=== PATIENT | female | born 2000 | race Caucasian/White ===

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

== ENCOUNTER → 2021-04-08 | Outpatient (CLI) | payer BC | END | disposition home or self-care (01) | LOC: COVID19 16:07 | PROVIDERS: ATTEND Internal Medicine | DX: Z11.52 Encounter for screening for COVID-19 (principal) ==

== ENCOUNTER → 2021-10-13 | Outpatient (CLI) | payer BC ==
[2021-10-13 12:04] LABS: HEMATOCRIT 40.2 % (37.0-47.0); MEAN CORPUSCULAR HGB 28.1 pg (27.0-31.0); MEAN CORPUSCULAR HGB CONC 33.1 g/dl (33.0-37.0); MEAN PLATELET VOLUME 11.7 fl (9.6-12.3); RED BLOOD COUNT 4.73 10*6/uL (4.10-5.10); RED CELL DISTRI WIDTH 12.7 % (0-14.5); WHITE BLOOD COUNT 8.8 10*3/uL (4.8-10.8)
[2021-10-13 12:21] LABS: ALKALINE PHOSPHATASE 61 U/L (45-117); BUN 10 mg/dl (7-24); CHLORIDE 106 mmol/L (98-107); CHOLESTEROL 177 mg/dL (<200); CREATININE 0.51 mg/dL (0.55-1.02); LDL CHOLESTEROL 109 mg/dL (9-159); POTASSIUM 3.9 mmol/L (3.5-5.1); SGOT/AST 11 IU/L (3-35); SGPT/ALT 25 U/L (12-78); SODIUM 139 mmol/L (136-145); TOTAL PROTEIN 8.3 gm/dL (6.4-8.2); TRIGLYCERIDES 91 mg/dl (<150)
== END | disposition home or self-care (01) ==
LOC: LAB 11:16
PROVIDERS: ATTEND Family Medicine
DX: R55 Syncope and collapse (principal); R39.198 Other difficulties with micturition; R51.9 Headache, unspecified; R41.0 Disorientation, unspecified

== ENCOUNTER 2021-10-14 18:40 | Emergency (ER) | payer BC | END 2021-10-14 21:20 | disposition home or self-care (01) | LOC: ED 18:40 | DX: S29.012A Strain of muscle and tendon of back wall of thorax, initial encounter (principal); M25.561 Pain in right knee; M25.562 Pain in left knee; Z79.899 Other long term (current) drug therapy; W18.39XA Other fall on same level, initial encounter; Y93.89 Activity, other specified; Y92.89 Other specified places as the place of occurrence of the external cause; Y99.8 Other external cause status ==

== ENCOUNTER 2025-01-14 12:58 | Emergency (ER) | payer SELFPAY ==
[~2025-01-14] VITALS: Ht 172.7 cm; Wt 119.7 kg
[2025-01-14] MEDS ORDERED: SODIUM CHLORIDE 0.9% 500 ML IV ONE (15:05)
[2025-01-14] MEDS ORDERED: Ketorolac Tromethamine 30 MG/ML VIAL IV ONE (15:05)
[2025-01-14 16:13] LABS: BASO % 0.2 % (0.0-1.0); EOS # 0.1 10*3/uL (0.0-0.4); EOS % 1.2 % (1.0-4.0); HEMATOCRIT 43.1 % (37.0-47.0); MEAN CELL VOLUME 84.3 fl (81.0-99.0); MEAN CORPUSCULAR HGB 28.4 pg (27.0-31.0); MEAN CORPUSCULAR HGB CONC 33.6 g/dl (33.0-37.0); MEAN PLATELET VOLUME 11.2 fl (9.6-12.3); MONO # 0.7 10*3/uL (0.1-1.0); MONO % 5.4 % (3.0-9.0); NEUT % 65.8 % (47.0-73.0); PLATELET COUNT AUTOMATED 286 10*3/uL (130-400); RED BLOOD COUNT 5.11 10*6/uL (4.10-5.10); RED CELL DISTRI WIDTH 12.6 % (0-14.5); WHITE BLOOD COUNT 12.1 10*3/uL (4.8-10.8)
[2025-01-14 16:34] LABS: BILIRUBIN Negative (Negative); BLOOD Negative (Negative); CLARITY Clear (Clear); COLOR Yellow (Yellow); GLUCOSE 3+ (Negative); KETONE Trace (Negative); LEUKO ESTERASE Negative (Negative); NITRITE Negative (Negative); PH 5.5 (4.5-8.0); SPECIFIC GRAVITY >= 1.030 (1.001-1.030)
[2025-01-14 16:41] LABS: ALKALINE PHOSPHATASE 86 U/L (46-116); BUN 7 mg/dl (9-23); CHLORIDE 99 mmol/L (98-107); POTASSIUM 3.9 mmol/L (3.4-5.1); SGPT/ALT 34 U/L (5-49); TOTAL PROTEIN 7.7 gm/dL (6.0-8.0)
[2025-01-14 16:47] LABS: MUCOUS 1+; WBC 0-2 wbc/hpf (0-5)
[2025-01-14] MEDS ORDERED: Ondansetron4 MG PO (17:10)
[2025-01-14] MEDS ORDERED: TYLE3UD PO (17:10)
== END 2025-01-14 17:15 | disposition home or self-care (01) ==
LOC: ED 12:58
PROVIDERS: Emergency Medicine
DX: N91.2 Amenorrhea, unspecified (principal); H66.91 Otitis media, unspecified, right ear; R10.2 Pelvic and perineal pain; Z79.899 Other long term (current) drug therapy